=== PATIENT | male | born 1975 | race Caucasian/White ===

== ENCOUNTER 2020-02-29 15:42 | Emergency (ER) | payer MEDICAID ==
--- NOTE | 2020-02-29 15:58 | CT ---
EXAMINATION: Head wo Cont SEX: Male AGE: 44 years CLINICAL HISTORY: 44-year-old male "passed out while fishing". SYNCOPE. No head trauma. Scan technique: Volume acquisition of data emergency unenhanced CT scan of the head and brain obtained with the patient lying supine on the Siemens multislice scanner [facility]. All data archived in the PACS system for storage, reformatting axial/sagittal/coronal planes and study (bone/brain windows). Interpretation: NEGATIVE exam. 1. Uniformly thick bony calvarium without pathologic skeletal lesion, fracture, or underlying brain contusion. 2. No extracerebral/intracranial epidural or subdural hematoma. 3. No supratentorial or posterior fossa mass lesion. Cerebellum and brainstem unremarkable. 4. Physiologic midline pineal and symmetric choroid plexus calcification. No hydrocephalus. 5. No focal area of ischemic infarct, signs of cerebral edema or encephalomalacia. 6. No sign of acute intracerebral, intraventricular or subarachnoid bleed. 7. Symmetric clear pneumatization of the paranasal and mastoid sinuses.
--- NOTE | 2020-02-29 16:01 | CR ---
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 Interpretation: 1. Isolated tiny granuloma periphery of the right upper lobe. 2. Normal cardiac silhouette. No pulmonary vascular congestion, cephalization of flow, alveolar edema or dependent pleural effusion. 3. Left-sided aortic arch and stomach bubble. (Down snap artifacts) prominent nipple shadows bilaterally. 4. No mass lung malignancy or hilar/mediastinal lymphadenopathy. 5. No atelectasis/collapse or lobar pneumonia. 6. Bony thorax (AP projection) unremarkable. No pneumothorax or pneumomediastinum. CONCLUSION: No acute cardiopulmonary abnormality.
[2020-02-29 16:34] LABS: ANION GAP 17.2 mEq/L (7-13); CHLORIDE,CL 103 mmol/L (98-107); SODIUM,NA 142 mmol/L (136-145)
[2020-02-29] MEDS ORDERED: Sodium Chloride 0.9% 1,000 ML IV ONE (16:54)
--- NOTE | 2020-02-29 16:56 | EDM.PDOC ---
ED HPI GENERAL MEDICAL PROBLEM - General Chief Complaint: Syncope Stated Complaint: AMBULANCE Time Seen by Provider: 02/29/20 16:45 Source of Information: Reports: Patient History Limitations: Reports: No Limitations - History of Present Illness INITIAL COMMENTS - FREE TEXT/NARRATIVE: This 44 yo male patient was brought to the ED by both [facility] and [facility] due to an episode while on the boat. The patient reports he was out on the boat with his angela going for a boat ride when he just passed out. The patient reports he woke up on the bottom of the boat listening to his friend talking to the ambulance. The patient reports he felt numbness in his hands and feet when he woke up. The patient reports he has not had anything to eat today and did drink a 32 ounce beer this afternoon. The patient denies any drug use or any regular alcohol use. The patient reports he currently takes Remeron and Omeprazole and has been taking it regularly as prescribed. Onset: Today Duration: Minutes:, Improving Location: Reports: Generalized Quality: Reports: Other Severity: Moderate Improves with: Reports: None Worsens with: Reports: None Context: Reports: Other Associated Symptoms: Reports: No Other Symptoms - Related Data Allergies Allergy/AdvReac Type Severity Reaction Status Date / Time No Known Allergies Allergy Verified 02/29/20 16:02 Home Meds: Home Meds Fluticasone Propionate [Flonase Allergy Relief] 2 spray INH BID 02/29/20 [History] Mirtazapine [Remeron] 15 mg PO DAILY 02/29/20 [History] Omeprazole 20 mg PO DAILY 02/29/20 [History] Zolpidem [Ambien] 10 mg PO BEDTIME PRN 02/29/20 [History] rOPINIRole [Requip] 1 mg PO BEDTIME PRN 02/29/20 [History] Social & Family History - Tobacco Use Smoking Status *Q: Current Every Day Smoker Years of Tobacco use: 20 Packs/Tins Daily: 0.5 - Caffeine Use Caffeine Use: Reports: Coffee, Soda - Recreational Drug Use Recreational Drug Use: Yes Recreational Drug Type: Reports: Methamphetamine ED ROS GENERAL - Review of Systems Review Of Systems: Comprehensive ROS is negative, except as noted in HPI. - Physical Exam Exam: See Below Exam Limited By: No Limitations General Appearance: Alert, WD/WN, No Apparent Distress Eye Exam: Bilateral Eye: EOMI, Normal Inspection, PERRL Ears: Normal External Exam, Normal Canal, Hearing Grossly Normal, Normal TMs Nose: Normal Inspection, Normal Mucosa, No Blood Throat/Mouth: Normal Inspection, Normal Lips, Normal Teeth, Normal Gums, Normal Oropharynx, Normal Voice, No Airway Compromise Head Exam: Atraumatic, Normocephalic Neck: Normal Inspection, Supple, Non-Tender, Full Range of Motion Respiratory/Chest: No Respiratory Distress, Lungs Clear, Normal Breath Sounds, No Accessory Muscle Use, Chest Non-Tender Cardiovascular: Normal Peripheral Pulses, Regular Rate, Rhythm, No Edema, No Gallop, No JVD, No Murmur, No Rub GI/Abdominal: Normal Bowel Sounds, Soft, Non-Tender, No Organomegaly, No Distention, No Abnormal Bruit, No Mass (Male) Exam: Deferred Rectal (Males) Exam: Deferred Neuro Exam (Abbreviated): Alert, Oriented, CN II-XII Intact, Normal Cognition, Normal Gait, Normal Reflexes, No Motor/Sensory Deficits Back Exam: Normal Inspection, Full Range of Motion, NT Extremities: Normal Inspection, Normal Range of Motion, Non-Tender, No Pedal Edema, Normal Capillary Refill Psychiatric: Normal Affect, Normal Mood Skin Exam: Warm, Dry, Intact, Normal Color, No Rash Course - Vital Signs Last Recorded V/S: Last Vital Signs Temp 36.9 C 02/29/20 15:43 Pulse 74 02/29/20 15:43 Resp 16 02/29/20 15:43 BP 107/65 02/29/20 15:43 Pulse Ox 100 02/29/20 15:43 Orthostatic Blood Pressure [ 126/73 Standing] Orthostatic Blood Pressure [ 134/76 Sitting] Orthostatic Blood Pressure [ 122/66 Supine] - Orders/Labs/Meds Orders: Active Orders 24 hr Category Date Time Status EKG Documentation Completion [RC] STAT Care 02/29/20 16:04 Active Labs: Laboratory Tests 02/29/20 02/29/20 Range/Units 16:03 16:03 WBC 12.3 H (5.0-10.0) 10^3/uL RBC 5.39 (4.6-6.2) 10^6/uL Hgb 16.0 (14.0-18.0) g/dL Hct 44.3 (40.0-54.0) % MCV 82.2 (80-100) fL MCH 29.7 (27.0-34.0) pg MCHC 36.1 H (33.0-35.0) g/dL Plt Count 276 (150-450) 10^3/uL Neut % (Auto) 69.7 (42.2-75.2) % Lymph % (Auto) 22.2 (20.5-50.1) % Tate % (Auto) 6.3 (2-8) % Eos % (Auto) 1.6 (1.0-3.0) % Baso % (Auto) 0.2 (0.0-1.0) % Add Manual Diff Yes Neutrophils % (Manual) 64 (42-75) % Band Neutrophils % 1 % Lymphocytes % (Manual) 24 (20-50) % Monocytes % (Manual) 5 (2-8) % Eosinophils % (Manual) 4 H (1-3) % Metamyelocytes % 1 Myelocytes % 1 Toxic Granulation 1+ slight Sodium 142 (136-145) mmol/L Potassium 3.2 L (3.5-5.1) mmol/L Chloride 103 (98-107) mmol/L Carbon Dioxide 25 (21-32) mmol/L Anion Gap 17.2 H (7-13) mEq/L BUN 16 (7-18) mg/dL Creatinine 1.29 (0.70-1.30) mg/dL Est Cr Clr Drug Dosing 65.94 mL/min Estimated GFR (MDRD) > 60 BUN/Creatinine Ratio 12.4 (No establ ref range) Glucose 80 (74-99) mg/dL Calcium 8.4 L (8.5-10.1) mg/dL Total Bilirubin 0.3 (0.2-1.0) mg/dL AST 15 (15-37) U/L ALT 28 (16-63) U/L Alkaline Phosphatase 93 (46-116) U/L Troponin I < 0.017 (0.000-0.056) ng/mL Total Protein 7.3 (6.4-8.2) g/dL Albumin 4.0 (3.4-5.0) g/dL Globulin 3.3 Albumin/Globulin Ratio 1.2 Meds: Medications Discontinued Medications Generic Name Dose Route Start Last Admin Trade Name Freq PRN Reason Stop Dose Admin Sodium Chloride 1,000 mls @ 999 mls/hr 02/29/20 16:54 02/29/20 17:03 Normal Saline IV 02/29/20 17:54 999 mls/hr .BOLUS ONE Administration Departure - Departure Time of Disposition: 18:05 Disposition: Home, Self-Care 01 Condition: Poor Clinical Impression: Syncope Qualifiers: Syncope type: heat syncope Encounter type: initial encounter Qualified Code(s): T67.1XXA - Heat syncope, initial encounter - Discharge Information Instructions: Syncope, [id number], Dehydration, Adult, [id number] Forms: ED Department Discharge Care Plan Goals: The patient was advised of the examination, lab, EKG and CT results during the visit. The patient was encouraged to keep well hydrated throughout the remainder of the summer. If the patient has any additional symptoms or concerns, the patient should either return to the emergency department or visit his primary care facility. Sepsis Event Note (ED) - Evaluation Sepsis Screening Result: No Definite Risk - Focused Exam Vital Signs: Vital Signs Temp Pulse Resp BP Pulse Ox 02/29/20 15:43 36.9 C 74 16 107/65 100 - My Orders Last 24 Hours: My Active Orders 02/29/20 16:04 EKG Documentation Completion [RC] STAT - Assessment/Plan Last 24 Hours: My Active Orders 02/29/20 16:04 EKG Documentation Completion [RC] STAT
== END 2020-02-29 18:14 | disposition home or self-care (01) ==
LOC: DL.ED 15:42
DX: T67.1XXA Heat syncope, initial encounter (principal); F17.210 Nicotine dependence, cigarettes, uncomplicated; Z79.899 Other long term (current) drug therapy
CPT/HCPCS: 36415; 70450; 71045; 80053; 82962; 84484; 85025; 93005; 96360; 99285; J7030